=== PATIENT | male | born 1970 | race Caucasian/White ===

== ENCOUNTER → 2018-06-18 10:58 | Outpatient (CLI) | payer OTHER, SELFPAY ==
[2014-11-13 21:15] VITALS: BMI 34.6
[2018-06-18 12:43] LABS: Hematocrit 49.2 % (40-54); Hemoglobin 17.4 g/dl (13.0-16.5); Mean Corp Hgb Conc 35.4 g/gl (32-36); Mean Corpuscular Hgb 31.6 pg (27.0-32.0); Mean Corpuscular Volume 89.3 fL (80-94); Mean Platelet Vol. 11.6 fl (6.2-12.0); Platelet Count 200 K/mm3 (150-450); RBC Distribution Width CV 12.3 % (11.6-14.6); RBC Distribution Width SD 39.8 fl (35.1-43.9); Red Blood Count 5.51 M/mm3 (4.6-6.2); White Blood Count 7.5 K/mm3 (4.4-11.0)
[2018-06-18 12:58] LABS: Scan Indicated on CBC? Y/N NO
[2018-06-18 13:04] LABS: Microalbumin,Random Urine < 5.0 mg/L (NO RANGE EST.)
[2018-06-18 13:13] LABS: ALB/GLOB Ratio 1.1 RATIO (0.9-2.4); AST(SGOT) 32 U/L (15-37); Alanine Aminotransfer ALT/SGPT 57 U/L (16-61); Albumin, Serum 3.8 g/dL (3.2-5.0); Alkaline Phosphatase 86 U/L (45-117); Anion Gap 13 (5-15); BUN 17 mg/dL (7-18); BUN/Creat Ratio 19.4 RATIO (10-20); Calcium,Total 8.1 mg/dL (8.5-10.1); Chloride 105 mmol/L (98-107); Cholesterol 207 mg/dL (200); Creatinine, Serum 0.88 mg/dL (0.70-1.30); EST Glomerular Filtration Rate 99 mL/min (>60); Est Glom Filt Rate - Afr Amer 120 mL/min (>60); Globulin 3.5 g/dL (2.2-4.2); Glucose 185 mg/dL (74-106); High Density Lipoprotein 34 mg/dL; Protein, Total 7.3 g/dL (6.4-8.2); Sodium Level 139 mmol/L (136-145); Triglycerides 304 mg/dL; Very Low Density Lipoprotein 61 mg/dL (5-40)
== END ==
PROVIDERS: Family Provider Internal Medicine; PCP Internal Medicine; Referring Provider Internal Medicine; Visit Provider Internal Medicine
DX: E11.9 Type 2 diabetes mellitus without complications (principal)
CPT/HCPCS: 36415; 80053; 80061; 82043; 82570; 83036; 84443; 85027

== ENCOUNTER → 2020-02-28 08:47 | Outpatient (CLI) | payer OTHER, SELFPAY ==
[2014-11-13 21:15] VITALS: BMI 34.6
[2020-02-28 10:12] LABS: Hematocrit 52.1 % (40-54); Mean Corp Hgb Conc 35.7 g/dL (32-36); Mean Corpuscular Hgb 33.3 pg (27.0-32.0); Mean Corpuscular Volume 93.2 fL (80-94); Mean Platelet Vol. 11.7 fl (6.2-12.0); Platelet Count 182 K/mm3 (150-450); RBC Distribution Width CV 11.8 % (11.6-14.6); RBC Distribution Width SD 40.5 fl (35.1-43.9); Red Blood Count 5.59 M/mm3 (4.6-6.2); White Blood Count 6.2 K/mm3 (4.4-11.0)
[2020-02-28 10:25] LABS: Hemoglobin A1c 8.8 % (3.8-5.6)
[2020-02-28 10:33] LABS: ALB/GLOB Ratio 1.1 RATIO (0.9-2.4); AST(SGOT) 23 U/L (15-37); Alanine Aminotransfer ALT/SGPT 43 U/L (16-61); Albumin, Serum 3.9 g/dL (3.2-5.0); Alkaline Phosphatase 83 U/L (45-117); Anion Gap 7 (5-15); BUN 18 mg/dL (7-18); BUN/Creat Ratio 21.1 RATIO (10-20); Calcium,Total 8.5 mg/dL (8.5-10.1); Chloride 103 mmol/L (98-107); Cholesterol 215 mg/dL (200); Creatinine, Serum 0.85 mg/dL (0.70-1.30); EST Glomerular Filtration Rate 101 mL/min (>60); Est Glom Filt Rate - Afr Amer 123 mL/min (>60); Globulin 3.4 g/dL (2.2-4.2); Glucose 192 mg/dL (74-106); High Density Lipoprotein 42 mg/dL; Potassium 4.1 mmol/L (3.5-5.1); Protein, Total 7.3 g/dL (6.4-8.2); Sodium Level 138 mmol/L (136-145); Thyroid Stim Hormone (TSH) 1.75 uIU/mL (0.358-3.74); Triglycerides 455 mg/dL
[2020-02-28 10:37] LABS: Microalbumin,Random Urine < 5.0 mg/L (NO RANGE EST.)
[2020-02-28 10:43] LABS: Hemoglobin 18.6 g/dL (13.0-16.5)
[2020-02-28 11:30] LABS: Scan Indicated on CBC? Y/N YES- FLAGS NOTED
[2020-03-03 09:49] LABS: Pathologist Review Reviewed
== END ==
PROVIDERS: PCP Internal Medicine; Referring Provider Internal Medicine; Visit Provider Internal Medicine
DX: E11.9 Type 2 diabetes mellitus without complications (principal)
CPT/HCPCS: 36415; 80053; 80061; 82043; 82570; 83036; 84443; 85027

== ENCOUNTER → 2020-10-09 09:13 | Outpatient (CLI) | payer OTHER, SELFPAY ==
[2014-11-13 21:15] VITALS: BMI 34.6
[2020-10-09 09:49] LABS: Hematocrit 49.8 % (40-54); Mean Corp Hgb Conc 36.1 g/dL (32-36); Mean Corpuscular Hgb 34.2 pg (27.0-32.0); Mean Corpuscular Volume 94.7 fL (80-94); Platelet Count 177 K/mm3 (150-450); RBC Distribution Width CV 11.9 % (11.6-14.6); RBC Distribution Width SD 41.1 fl (35.1-43.9); Red Blood Count 5.26 M/mm3 (4.6-6.2); White Blood Count 6.8 K/mm3 (4.4-11.0)
[2020-10-09 10:10] LABS: ALB/GLOB Ratio 1.3 RATIO (0.9-2.4); AST(SGOT) 23 U/L (15-37); Alanine Aminotransfer ALT/SGPT 37 U/L (16-61); Albumin, Serum 3.9 g/dL (3.2-5.0); Alkaline Phosphatase 75 U/L (45-117); Anion Gap 5 (5-15); BUN 14 mg/dL (7-18); BUN/Creat Ratio 18.2 RATIO (10-20); Calcium,Total 8.6 mg/dL (8.5-10.1); Chloride 106 mmol/L (98-107); Cholesterol 170 mg/dL (200); Creatinine, Serum 0.77 mg/dL (0.70-1.30); EST Glomerular Filtration Rate 113 mL/min (>60); Est Glom Filt Rate - Afr Amer 137 mL/min (>60); Globulin 3.1 g/dL (2.2-4.2); Glucose 146 mg/dL (74-106); High Density Lipoprotein 36 mg/dL; Potassium 3.7 mmol/L (3.5-5.1); Sodium Level 140 mmol/L (136-145); Triglycerides 287 mg/dL; Very Low Density Lipoprotein 57 mg/dL (5-40)
[2020-10-09 10:30] LABS: Microalbumin,Random Urine < 5.0 mg/L (NO RANGE EST.)
== END ==
PROVIDERS: PCP Internal Medicine; Referring Provider Internal Medicine; Visit Provider Internal Medicine
DX: D75.1 Secondary polycythemia (principal); E11.9 Type 2 diabetes mellitus without complications
CPT/HCPCS: 36415; 80053; 80061; 82043; 82570; 83036; 85027

== ENCOUNTER → 2021-03-05 08:36 | Outpatient (CLI) | payer OTHER, SELFPAY ==
[2021-03-05 10:25] LABS: Cholesterol 182 mg/dL (200); High Density Lipoprotein 35 mg/dL; Triglycerides 273 mg/dL; Very Low Density Lipoprotein 55 mg/dL (5-40)
[2021-03-05 10:31] LABS: Hemoglobin A1c 8.1 % (3.8-5.6)
== END ==
PROVIDERS: PCP Internal Medicine; Referring Provider Internal Medicine; Visit Provider Internal Medicine
DX: E11.9 Type 2 diabetes mellitus without complications (principal); E78.2 Mixed hyperlipidemia
CPT/HCPCS: 36415; 80061; 83036

== ENCOUNTER → 2022-01-10 | Outpatient (CLI) | payer OTHER, SELFPAY ==
[2022-01-10 10:07] LABS: Mean Corpuscular Volume 94.5 fL (80-94); Mean Platelet Vol. 11.3 fl (6.2-12.0); Platelet Count 191 K/mm3 (150-450); RBC Distribution Width CV 11.9 % (11.6-14.6); RBC Distribution Width SD 40.9 fl (35.1-43.9); Red Blood Count 5.29 M/mm3 (4.6-6.2); White Blood Count 6.4 K/mm3 (4.4-11.0)
[2022-01-10 10:50] LABS: ALB/GLOB Ratio 1.2 RATIO (0.9-2.4); AST(SGOT) 18 U/L (15-37); Alanine Aminotransfer ALT/SGPT 37 U/L (16-61); Albumin, Serum 3.7 g/dL (3.2-5.0); Alkaline Phosphatase 71 U/L (45-117); Anion Gap 8 (5-15); BUN 13 mg/dL (7-18); BUN/Creat Ratio 15.9 RATIO (10-20); Chloride 103 mmol/L (98-107); Cholesterol 161 mg/dL (200); Creatinine, Serum 0.82 mg/dL (0.70-1.30); EST Glomerular Filtration Rate 105 mL/min (>60); Est Glom Filt Rate - Afr Amer 127 mL/min (>60); Globulin 3.2 g/dL (2.2-4.2); Glucose 204 mg/dL (74-106); Hemoglobin A1c 8.8 % (3.8-5.6); High Density Lipoprotein 36 mg/dL; Potassium 4.3 mmol/L (3.5-5.1); Protein, Total 6.9 g/dL (6.4-8.2); Sodium Level 139 mmol/L (136-145); Thyroid Stim Hormone (TSH) 1.95 uIU/mL (0.358-3.74); Triglycerides 303 mg/dL; Very Low Density Lipoprotein 61 mg/dL (5-40)
[2022-01-10 11:13] LABS: Microalbumin,Random Urine 6.7 mg/L (NO RANGE EST.); Microalbumin:Creatinine Ratio 10.6 mg/g CRE (<30 mg/g CRE)
== END | disposition home or self-care (01) ==
PROVIDERS: PCP Internal Medicine; Referring Provider Internal Medicine; Visit Provider Internal Medicine
DX: E11.9 Type 2 diabetes mellitus without complications (principal)
CPT/HCPCS: 36415; 80053; 80061; 82043; 82570; 83036; 84443; 85027

== ENCOUNTER → 2022-08-01 | Outpatient (CLI) | payer BC, SELFPAY ==
[2022-08-01 13:39] LABS: Hemoglobin A1c 8.7 % (3.8-5.6)
== END | disposition home or self-care (01) ==
PROVIDERS: Referring Provider Internal Medicine; Visit Provider Internal Medicine
DX: E11.9 Type 2 diabetes mellitus without complications (principal)
CPT/HCPCS: 36415; 83036

== ENCOUNTER → 2023-06-02 | Outpatient (CLI) | payer BC, SELFPAY ==
--- OUTSIDE RECORDS SUMMARY | 2023-06-02 10:23 | XMS RPT_ITS | CCD ---
Author Name Unknown Address [email or web address] [place] [address] Organization [facility] Results Test Name Value Interpretation Reference Range Facil ity Progress note 12-02-2020 Note Date & Type Note Facility 12-02-2020 Note HNO ID: [id number] Author: Mitesh Ledbetter APRN.SHOPPER Service: ? Author Type: Nurse Practitioner Type: Progress Notes Filed: 12/02/2020 4:08 PM Note Text: Visit Date: December 02, 2020 Patient Name: Mr.Shawn Charley Scales Date of : 1970 MRN/E #: [id number] Chief Complaint Patient presents with: Sinusitis: x 1 week History of present illness Ana Scales is a 50 year old male. Presents with complaints of sinus congestion that started 1 week ago. Symptoms started 2 days after hernia surgery and have constant. Denies having a fever, chills, body aches, headaches, fatigue, or N/V/D. Currently is unvaccinated for COVID. He has not taken anything for his symptoms for relief. PAIN EVALUATION No data found in the last 1 encounters. ALLERGIES No Known Allergies PAST MEDICAL HISTORY Diagnosis Date - Diabetes (HCC) PAST SURGICAL HISTORY Procedure Laterality Date - HERNIA REPAIR HX Inguinal hernia age 15 - KNEE SURGERY HX Bilateral 1999 - REPAIR UMBILICAL HERNIA 11/25/2020 Social History Tobacco Use - Smoking status: Never Smoker - Smokeless tobacco: Never Used Vaping Use - Vaping Use: Never used Substance Use Topics - Alcohol use: Not on file - Drug use: Not on file FAMILY HISTORY Problem Relation Age of Onset - Cancer Mother stomach Review of Systems Constitutional: Negative for chills, fever and malaise/fatigue. HENT: Positive for congestion and sinus pain. Negative for sore throat. Respiratory: Negative for cough, shortness of breath and wheezing. Cardiovascular: Negative for chest pain and palpitations. Gastrointestinal: Negative for abdominal pain, diarrhea, nausea and vomiting. Musculoskeletal: Negative for myalgias. Skin: Negative for itching and rash. Neurological: Negative for dizziness, tingling and headaches. Physical Exam Vitals and nursing note reviewed. Constitutional: Appearance: Normal appearance. HENT: Nose: Right Sinus: Frontal sinus tenderness present. No maxillary sinus tenderness. Left Sinus: Frontal sinus tenderness present. No maxillary sinus tenderness. Eyes: Extraocular Movements: Extraocular movements intact. Pupils: Pupils are equal, round, and reactive to light. Cardiovascular: Rate and Rhythm: Normal rate and regular rhythm. Pulses: Normal pulses. Heart sounds: Normal heart sounds. Pulmonary: Effort: Pulmonary effort is normal. No respiratory distress. Breath sounds: Normal breath sounds. No wheezing or rales. Skin: General: Skin is warm and dry. Neurological: Mental Status: He is alert and oriented to person, place, and time. BP 118/84 Pulse 130 Temp (Src) 98.8 (Left Tympanic) Resp 16 Wt 193 lb 9.6 oz (87.8kg) SpO2 96% Assessment/Plan (J32.9, J40) Sinobronchitis (primary encounter diagnosis) -doxycycline (VIBRA-TABS) 100 mg tablet -With proper treatment nasal congestion and other symptoms (except the cough) should gradually improve over the following 14 days. -Contact your physician if any of the following happens: 1)Temperature over 102 degrees. 2)Bleeding from the nose 3)Severe headache which does not go away after you have taken aspirin or a prescribed medication 4)Increased swelling over the face 5)Blurred vision Mitesh Ledbetter APRN.SHOPPER Discussed above plan with patient. Pt agreeable with above plan. [facility] Progress note 12-02-2020 Note Date & Type Note Facility 12-02-2020 Note HNO ID: [id number] Author: Chelsea Reich PA-C Service: ? Author Type: Physician Client Account Specialist Type: Progress Notes Filed: 12/02/2020 3:51 PM Note Text: FOLLOW UP VISIT - HERNIA NAME: Ana Whitehead [facility] NO.: [id number] DATE OF SERVICE: 12/02/2020 : 1970 REFERRING PHYSICIAN: MD Ana Larsen is a patient I am following for a umbilical hernia. Dr. Villegas performed an umbilical hernia repair with mesh on 11/25/20. The patient currently notes no major complaints regarding his surgery. his appetite has been good. he denies fever, chills or abdominal pain. he does note some mild incisional discomfort. he notes no bulges at the operative site. Patient states to me that his main issue today is severe sinus pressure and is asking for something for a sinus infection from our office. States he developed sinus issues immediately following surgery. States now having green sinus drainage. Notes occasional dry cough. Denies shortness of breath. Denies fever or chills. Of note, these symptoms were not mentioned by patient to [facility] staff checking in at door or to nurse during intake. Patient denies any sick contacts. He has not been vaccinated for COVID-19. He has not contacted his PCP about his sinus complaints. Patient noted to be tachycardic, patient states he is nervous to be here today. VITALS: Blood pressure 118/82, pulse (!) 133, temperature 36.8 ?C (98.2 ?F), weight 87.4 kg (192 lb 9.6 oz), SpO2 95 %. General: patient is alert, cooperative, in no acute distress, ambulates easily. Normal speech and affect Heart RRR, tachycardic Lungs CTA On examination, the abdomen is benign. The incisions are healing well without signs of infection or inflammation. There are no signs of recurrent hernia formation. Assessment IMPRESSION: status post umbilical hernia repair with mesh. Sinus symptoms-recommend Urgent Care for treatment and testing to r/o COVID-19 PLAN: I have reviewed my findings with Dr. Villegas, who also participated in development of the following plan. If the patient notes any problems, he should contact me immediately. he may return to his regular activities as tolerated, with the exception of no lifting greater than 20 pounds for the next 7 weeks. If patient feels the urge to cough or sneeze, they should brace against the repair site with their hands or a pillow. Recommended that patient proceed directly to Urgent Care to address his sinus issues and for testing to r/o COVID-19. Patient stated it's not COVID and I don't feel like going to Urgent Care, continued to ask for medication for sinus issues. Repeated recommendation for Urgent Care, discussed that patient should be tested for COVID and reinforced that our office would not be prescribing medication for these symptoms. Patient verbalized understanding. Diagnoses: (Z98.890, Z87.19) S/P hernia repair (primary encounter diagnosis) (J34.89) Sinus pressure (R00.0) Tachycardia Return to Clinic: The patient is instructed to follow-up with me as needed. Chelsea Reich PA-C [facility] Progress note 11-17-2020 Note Date & Type Note Facility 11-17-2020 Note HNO ID: [id number] Author: Zev Villegas MD Service: ? Author Type: Physician Type: Progress Notes Filed: 11/17/2020 3:23 PM Note Text: HISTORY AND PHYSICAL Ana Scales 1970 REFERRING PHYSICIAN: Self CHIEF COMPLAINT: Consult (Consult Umbilical hernia) HPI: Ana is a 50 year old male with a complaint of a bulge and discomfort in his umbilical region. The patient notes discomfort in this area with lifting, straining and coughing. The symptoms have increased, over the past few months. The patient notes no symptoms of bowel obstruction and denies nausea or vomiting. PAST MEDICAL HISTORY Diagnosis Date - Diabetes (HCC) PAST SURGICAL HISTORY Procedure Laterality Date - HERNIA REPAIR HX Inguinal hernia age 15 - KNEE SURGERY HX Bilateral 1998 Current Outpatient Medications Medication Sig - GLIMEPIRIDE ORAL Take by mouth. - dulaglutide (TRULICITY SUBCUTANEOUS) Inject subcutaneously. - FARXIGA 10 mg tablet Take 10 mg by mouth once daily. - MULTI-VITAMIN ORAL Take by mouth. - metFORMIN (GLUCOPHAGE) 500 mg tablet Take 500 mg by mouth twice daily with meals. - SITAGLIPTIN PHOS/METFORMIN HCL (JANUMET ORAL) Take by mouth. - azithromycin (ZITHROMAX Z-MARY CARMEN) 250 mg tablet Take 2 tablets by mouth day one, then 1 tablet daily until gone. (Patient not taking: Reported on 10/02/2017 ) - benzonatate 100 mg capsule Take 1 capsule by mouth three times daily as needed for Cough. (Patient not taking: Reported on 10/02/2017 ) - trimethoprim-polymyxin eye drops ophthalmic solution Use 2 Drops in both eyes four times daily. (Patient not taking: Reported on 10/02/2017 ) No current facility-administered medications for this visit. ALLERGIES: Patient has no known allergies. PERSONAL HISTORY: Social History Tobacco Use - Smoking status: Never Smoker - Smokeless tobacco: Never Used Substance Use Topics - Alcohol use: Not on file - Drug use: Not on file FAMILY HISTORY: FAMILY HISTORY Problem Relation Age of Onset - Cancer Mother stomach REVIEW OF SYMPTOMS: The review of systems data was entered by the nurse and reviewed by nj Nursing Notes: Mil Fisher LPN 11/17/2020 3:10 PM Signed REVIEW OF SYSTEMS: General: The patient denies fatigue, denies weight loss, denies weight gain, denies feeling hot, and denies feelings of cold. Eyes: The patient denies glaucoma, denies eye injury/surgery, does not wear glasses or contacts. Ear/Nose/Throat: The patient denies allergies, denies hayfever, denies ear infections, and denies bloody noses. Cardiovascular: The patient denies chest pain, denies heart disease, denies high blood pressure,denies cardiac stent, denies prior heart attack, denies irregular heart beat, denies high cholesterol, denies poor circulation, denies heart failure, other cardiac issues, denies claudication, denies cold feet, denies peripheral arterial stent. Respiratory: The patient denies tuberculosis, denies pneumonia, denies frequent cough, denies pulmonary embolism, denies shortness of breath, and denies coughing up blood. Gastrointestinal: The patient denies difficulty swallowing, denies acid reflux, denies ulcers, denies vomiting, denies jaundice/hepatitis, denies gallbladder problems, denies black or tarry stools, denies hemorrhoids, denies bleeding from rectum, denies diverticulitis, denies constipation, denies diarrhea, denies loss of stool control, and NOTES hernias. Kidney/Bladder: The patient denies kidney stones, denies urine infections, and denies bloody urine. Skin: The patient denies a history of skin cancer, denies bleeding/changing moles, and denies a history of skin rash. Neurologic: The patient denies a history of epilepsy/convulsions, denies headaches, denies head/spinal injuries, and denies stroke/TIA. Psychiatric: The patient denies psychiatric medications, denies depression, and denies voices, denies substance abuse. Endocrine: The patient denies thyroid disorders, NOTES diabetes, and denies hormonal problems. Hematologic: The patient denies a history of bruising, denies bleeding, and denies anemia, denies blood clots. Infections: The patient denies a history of measles and mumps, denies rheumatic fever, and denies sexually transmitted diseases. Musculoskeletal: The patient denies back pain/injury, denies back problems, denies sciatica, NOTES knee/foot trouble, denies arthritis, or denies gout. When was patient's last Mammogram screening? N/A Last Colonoscopy: N/A Mil Fisher LPN PHYSICAL EXAMINATION: General: The patient is 50 year old male, well nourished, well hydrated in no acute distress. The patient is oriented to time, place, and person. VITALS: Blood pressure 120/88, pulse 111, temperature 36.9 ?C (98.5 ?F), height 172.7 cm (5' 8 ), weight 91.3 kg (201 lb 3.2 oz), SpO2 95 %. Body mass index is 30.59 kg/m?. HEENT: Normal cephalic, ataumatic, pupils are equally round, sclera are an (more content not included)... [facility] Summary Purpose Family History No Family History Records FoundNo Family History Records Found Advance Directives No Advanced Directives Records FoundNo Advanced Directives Records Found Additional Source Comments (unrecognized sect ion and content) No Status Records FoundNo Status Records Found INFORMATION SOURCE (unrecogn ized section and content) DATE CREATED AUTHOR AUTHOR'S ORGANIZ ATION 05/29/2021 [facility] FOR RECORDS PERTAINING TO PATIENTS WHO ARE OR HAVE BEEN ENROLLED IN A CHEMICAL DEPENDENCY/SUBSTANCEABUSE PROGRAM, SOME INFORMATION MAY BE OMITTED. This clinical summary was aggregated from multiple sources. Caution should be exercised in using it in the provision of clinical care. This summary normalizes information from multiple sources, and as a consequence, information in this document may materially change the coding, format and clinical context of patient data. In addition, data may be omitted in some cases. CLINICAL DECISIONS SHOULD BE BASED ON THE PRIMARY CLINICAL RECORDS. [facility] [employer] [facility]. provides no warranty or guarantee of the accuracy or completeness of information in this document.
[2023-06-02 12:20] LABS: Hematocrit 50.3 % (40-54); Hemoglobin 17.9 g/dL (13.0-16.5); Mean Corp Hgb Conc 35.6 g/dL (32-36); Mean Corpuscular Hgb 33.8 pg (27.0-32.0); Mean Corpuscular Volume 94.9 fL (80-94); Mean Platelet Vol. 11.3 fl (6.2-12.0); Platelet Count 196 K/mm3 (150-450); RBC Distribution Width CV 12.1 % (11.6-14.6); RBC Distribution Width SD 42.3 fl (35.1-43.9); White Blood Count 6.7 K/mm3 (4.4-11.0)
[2023-06-02 13:09] LABS: ALB/GLOB Ratio 1.2 RATIO (0.9-2.4); AST(SGOT) 26 U/L (15-37); Alanine Aminotransfer ALT/SGPT 52 U/L (16-61); Albumin, Serum 3.8 g/dL (3.2-5.0); Alkaline Phosphatase 78 U/L (45-117); Anion Gap 9 (5-15); BUN 19 mg/dL (7-18); BUN/Creat Ratio 23.3 RATIO (10-20); Calcium,Total 8.7 mg/dL (8.5-10.1); Chloride 106 mmol/L (98-107); Cholesterol 194 mg/dL (200); Creatinine, Serum 0.82 mg/dL (0.70-1.30); EST Glomerular Filtration Rate 105 mL/min (>60); Est Glom Filt Rate - Afr Amer 127 mL/min (>60); Globulin 3.2 g/dL (2.2-4.2); Glucose 236 mg/dL (74-106); High Density Lipoprotein 40 mg/dL; Potassium 3.8 mmol/L (3.5-5.1); Sodium Level 140 mmol/L (136-145); Thyroid Stim Hormone (TSH) 1.54 uIU/mL (0.358-3.74); Triglycerides 310 mg/dL; Very Low Density Lipoprotein 62 mg/dL (5-40)
[2023-06-02 13:44] LABS: Microalbumin,Random Urine < 5.0 mg/L (NO RANGE EST.)
[2023-06-02 17:07] LABS: Hemoglobin A1c 9.6 % (3.8-5.6)
== END | disposition home or self-care (01) ==
LOC: MTLAB 09:31
PROVIDERS: Referring Provider Internal Medicine; Visit Provider Internal Medicine
DX: E11.9 Type 2 diabetes mellitus without complications (principal)
CPT/HCPCS: 36415; 80053; 80061; 82043; 82570; 83036; 84443; 85027

== ENCOUNTER → 2024-01-26 | Outpatient (CLI) | payer BC, SELFPAY ==
[2024-01-26 10:45] LABS: Hemoglobin A1c 10.4 % (3.8-5.6)
== END | disposition home or self-care (01) ==
LOC: MTLAB 08:39
PROVIDERS: Referring Provider Internal Medicine; Visit Provider Internal Medicine
DX: E10.65 Type 1 diabetes mellitus with hyperglycemia (principal); Z79.4 Long term (current) use of insulin
CPT/HCPCS: 36415; 83036

== ENCOUNTER → 2024-03-22 | Outpatient (CLI) | payer BC, SELFPAY ==
[2024-03-22 10:16] LABS: Absolute Lymphocyte Count 1.47 X10^3/uL (0.83-4.51); Absolute Neutrophil Count 2.6 X10^3/uL (2.0-7.7); Basophil# 0.05 X10^3/uL; Eosinophil# 0.26 X10^3/uL; Eosinophils% 5.4 % (0-5); Hematocrit 47.7 % (40-54); Hemoglobin 17.1 g/dL (13.0-16.5); Lymphocyte # 1.47 X10^3/ul (0.83-4.51); Lymphocyte % 30.4 % (19-41); Mean Corp Hgb Conc 35.8 g/dL (32-36); Mean Corpuscular Hgb 33.7 pg (27.0-32.0); Mean Corpuscular Volume 93.9 fL (80-94); Mean Platelet Vol. 10.7 fl (6.2-12.0); Monocyte# 0.46 X10^3/uL; Monocyte% 9.5 % (0-10); NRBC Flagged by Analyzer 0 % (0-5); Neutrophil # 2.57 X10^3/uL (2.7-7.7); Neutrophil % 53.1 % (47-70); Platelet Count 189 K/mm3 (150-450); RBC Distribution Width CV 11.9 % (11.6-14.6); RBC Distribution Width SD 41.2 fl (35.1-43.9); Red Blood Count 5.08 M/mm3 (4.6-6.2); White Blood Count 4.8 K/mm3 (4.4-11.0)
[2024-03-22 10:42] LABS: Vitamin D,25 Hydroxy 23.7 ng/mL
[2024-03-22 10:55] LABS: ALB/GLOB Ratio 1.2 RATIO (0.9-2.4); AST(SGOT) 20 U/L (15-37); Alanine Aminotransfer ALT/SGPT 39 U/L (16-61); Albumin, Serum 3.6 g/dL (3.2-5.0); Alkaline Phosphatase 87 U/L (45-117); Anion Gap 5 (5-15); BUN 15 mg/dL (7-18); BUN/Creat Ratio 18.3 RATIO (10-20); Calcium,Total 8.7 mg/dL (8.5-10.1); Chloride 101 mmol/L (98-107); Cholesterol 175 mg/dL (200); Creatinine, Serum 0.82 mg/dL (0.70-1.30); EST Glomerular Filtration Rate 104 mL/min (>60); Est Glom Filt Rate - Afr Amer 126 mL/min (>60); Globulin 2.9 g/dL (2.2-4.2); Glucose 288 mg/dL (74-106); High Density Lipoprotein 39 mg/dL; PSA,Total - Annual Screen 2.11 ng/mL (0.00-4.00); Potassium 3.9 mmol/L (3.5-5.1); Protein, Total 6.5 g/dL (6.4-8.2); Sodium Level 135 mmol/L (136-145); Triglycerides 210 mg/dL; Very Low Density Lipoprotein 42 mg/dL (5-40)
[2024-03-31 16:07] LABS: Testosterone, % Free 5.77 % (1.50-4.20); Testosterone, Free 21.06 ng/dL (5.00-21.00); Testosterone, Total 365 ng/dL (264-916)
== END | disposition home or self-care (01) ==
LOC: MTLAB 08:53
PROVIDERS: PCP Family Medicine; Referring Provider Family Medicine; Visit Provider Family Medicine
DX: E78.00 Pure hypercholesterolemia, unspecified (principal); E11.65 Type 2 diabetes mellitus with hyperglycemia; R53.83 Other fatigue; Z12.5 Encounter for screening for malignant neoplasm of prostate; N52.9 Male erectile dysfunction, unspecified
CPT/HCPCS: 36415; 80053; 80061; 82306; 83036; 84153; 84402; 84403; 84443; 85025; G0103

== ENCOUNTER → 2024-04-10 | Outpatient (CLI) | payer BC, SELFPAY ==
[2024-04-14 17:06] LABS: Testosterone Free 16.8 pg/mL (7.2-24.0)
== END | disposition home or self-care (01) ==
LOC: LAB 06:09
PROVIDERS: PCP Family Medicine; Referring Provider Family Medicine; Visit Provider Family Medicine
DX: R97.20 Elevated prostate specific antigen [PSA] (principal)
CPT/HCPCS: 36415; 84402; 84403